=== PATIENT | male | born 1945 | race Caucasian/White ===

== ENCOUNTER → 2017-11-25 | Outpatient (CLI) | payer MEDICARE, BC | END | disposition home or self-care (01) | LOC: GMAM 10:50 | PROVIDERS: ATTEND Family Medicine | DX: Z12.5 Encounter for screening for malignant neoplasm of prostate (principal); E78.5 Hyperlipidemia, unspecified ==

== ENCOUNTER → 2017-11-26 | Outpatient (CLI) | payer MEDICARE, BC | LOC: GMAM 14:47 | PROVIDERS: ATTEND Family Medicine | DX: R41.82 Altered mental status, unspecified (principal) ==

== ENCOUNTER → 2017-11-28 | Outpatient (CLI) | payer MEDICARE, BC ==
--- NOTE | 2017-12-01 16:33 | MRI ---
EXAM DESCRIPTION: Brain w/oContrast CLINICAL HISTORY: 72 years, Male, MEMORY LOSS COMPARISON: August 19, 2014 TECHNIQUE: Multiplanar multi sequence images of the brain were obtained without gadolinium contrast. FINDINGS: Diffusion-weighted images show no diffusion restriction. Midline structures, including the corpus callosum, pituitary and brainstem, are unremarkable. The ventricles are of normal size and configuration, and there is no intraventricular mass. There is generalized age-appropriate volume loss. Physiologic vascular flow voids are noted. The internal auditory canals and cerebellopontine angles are unremarkable. There are no extra-axial fluid collections. There are irregular areas of increased T2/FLAIR signal involving periventricular and subcortical white matter in both cerebral hemispheres, nonspecific but likely related to chronic ischemic microvascular disease. There is no posterior fossa lesion. There is minimal mucoperiosteal thickening in the maxillary sinuses bilaterally. A small right-sided mastoid air cell effusion is noted. There is no calvarial lesion. IMPRESSION: Irregular areas of increased T2/FLAIR signal involving periventricular and subcortical white matter in both cerebral hemispheres, nonspecific but likely related to chronic ischemic microvascular disease. No cortical infarct, mass or other intracranial abnormality to explain patient symptoms. Generalized age-appropriate volume loss. Mild chronic bilateral maxillary sinusitis with a small right-sided mastoid air cell effusion. Electronically signed by: Erik Aleman MD 12/01/2017 4:32 PM [facility]
== END ==
LOC: MRI 11:00
PROVIDERS: ATTEND Family Medicine
DX: R41.82 Altered mental status, unspecified (principal); J32.0 Chronic maxillary sinusitis; Z87.891 Personal history of nicotine dependence

== ENCOUNTER 2018-04-22 05:46 | Day surgery (SDC) | payer MEDICARE, BC ==
[2018-04-22] MEDS: LACTATED RINGERS 1,000 ML ONE (08:10)
[2018-04-22 08:22] VITALS: O2SAT 97
[2018-04-22] MEDS ORDERED: PROPOFOL 200 MG/20 ML VIAL IV ONE (10:00)
--- NOTE | 2018-04-22 10:02 | OP ---
DATE OF PROCEDURE: 04/22/18 PREPROCEDURE DIAGNOSIS: 1. Fecal occult blood test positive. POSTPROCEDURE DIAGNOSIS: 1. Colonic polyps. 2. Large internal hemorrhoids. 3. Hypertrophied anal papilla. PROCEDURE: 1. Colonoscopy. SURGEON: Anthony Ivy MD SEDATION: The patient was sedated via IV propofol by the Anesthesia Department. COMPLICATIONS: No immediate complications. CONSENT: Prior to the procedure, risks, benefits and alternatives to the therapy were discussed with the patient. The risks included bleeding, infection , perforation and . The patient agreed to the procedure and signed a consent. PREPROCEDURE ANESTHESIA ASSESSMENT: An examination revealed no contraindication to sedation. Airway examination demonstrated a Mallampati class type 2, ASA grade assessment type 2. Throughout the procedure, the patient's blood pressure, pulse and oxygen saturation were monitored continuously. PROCEDURE: The patient was placed in the left lateral decubitus position and a rectal examination was performed. The rectal examination was within normal limits. The Olympus colonoscope was passed in the anus, rectum, traversing the colon to the level of the cecum as identified by the appendiceal orifice. The scope was retracted and the mucosa was visualized. The entirety of the exam was performed with direct visualization. Retroflexion was performed in the rectum. Preparation quality was good. The withdrawal time was greater than 6 minutes. The patient tolerated the procedure well. FINDINGS: 1. Three sessile colposcopic were seen in the sigmoid colon, removed with the cold snare. The polyps were completely retrieved. 2. Large non-bleeding internal hemorrhoids were seen on retroflexion. 3. Hypertrophied anal papilla was seen in the anorectal canal. RECOMMENDATION: 1. Return the patient home. 2. Resume previous diet. 3. Repeat colonoscopy in 3 to 5 years depending on results of pathology. 4. Followup pathology results. 5. May continue to obtain fecal occult blood testing or DNA based (Cologuard testing) per primary care provider interval times on yearly or every 3 years starting 3 years from present examination. 6. All findings were discussed with the patient and family members. #[id number] [facility]OSPITALNguyen
[2018-04-22 11:01] VITALS: BP 141/77; TEMP 97.3
== END 2018-04-22 10:45 | disposition home or self-care (01) ==
LOC: AMB 05:46
PROVIDERS: ATTEND Internal Medicine Gastroenterology
DX: R19.5 Other fecal abnormalities (principal); D12.5 Benign neoplasm of sigmoid colon; R63.4 Abnormal weight loss; Z87.891 Personal history of nicotine dependence; Z79.82 Long term (current) use of aspirin; Z79.899 Other long term (current) drug therapy
CPT/HCPCS: 00811; 45385; 88305; J3490; J7120

== ENCOUNTER → 2018-12-03 | Outpatient (CLI) | payer MEDICARE, BC ==
--- NOTE | 2018-12-03 16:24 | CT ---
EXAM DESCRIPTION: CTA Pelvis: Computed Tomography. 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 CTA of the abdomen and pelvis on this visit. TECHNIQUE: Spiral-axial scans 2.5 x 2.5 mm intervals through the abdomen and pelvis without oral or IV contrast. Coronal and sagittal 2.0 mm reconstructions. Total Exam DLP: 603.59 mGy-cm. This exam was performed according to our departmental CT dose-optimization program which includes automated exposure control, adjustment of the mA and/or kV according to patient size and/or use of iterative reconstruction technique; to reduce radiation dose to as low as reasonably achievable (ALARA). FINDINGS: Lung bases and pleura: 4 mm nodule partially visualized which appears to be associated with the right horizontal fissure. 3 mm nodule which appears to be associated with the lateral inferior right major fissure. Minimal scarring/atelectasis bilateral bases. No pleural effusion or pneumothorax. Liver, stomach, spleen, and adrenal glands: Stomach is unremarkable. Multiple fluid density masses in all segments of the liver. Some of low-density lesions are too small to determine density. One cyst projects from the anterior inferior right hepatic lobe. Other solid organs are negative. Pancreas, Gallbladder, and Ducts: Gallbladder is visualized. Distal fold with Fundus directed cranially. Duct is not distended. Pancreas is unremarkable. Normal surrounding fatty tissue. Kidneys and Ureters: Unremarkable. Mesentery: No fatty stranding or fascial thickening. No free air or free fluid. Aorta: Please see CTA abdomen and report. Small Bowel: Fluid and air-fluid levels with no significant distention. Terminal Ileum/Cecum: Minimal mucosal edema in the terminal ileum with minimal fatty stranding around the bowel outer wall. Ileocecal valve is unremarkable. Normal caliber of the appendix with normal surrounding fat. Colon: Rectosigmoid colon distended by fecal matter. Numerous diverticula in the sigmoid and descending colon. Number. Diffuse fecal matter. No significant air-fluid levels. No other complications. No mucosal edema. Pelvic Organs: Bladder is slightly contracted. Prostate gland abutting the base of the bladder and the seminal vesicles. Diameter is 4.7 x 3.3 cm. No fluid in the anterior peritoneal reflection. Possible epiploic appendage from the rectum versus fatty lipoma anterior to the right of the rectum on axial series 2, image 152. Numerous calcifications in the pelvis. Spine and Bony Pelvis: Decreased bone density in the lumbar spine. Narrowing of the L1-2 and L2-3 disc spaces with bulging discs. Grade 1 anterolisthesis L4-5 and bilateral significant foraminal narrowing. No lytic or blastic lesions. Diffuse [id number] arthrosis bilateral hip joints. Abdominal Wall/Back Soft Tissues: Minimal diastases at the umbilicus but no bowel hernia. Bilateral fatty inguinal hernias more on the right than the left not containing bowel. Posterior paraspinal muscle atrophy more on the left. IMPRESSION: 1. Small nodules in the lung bases apparently associated with fissures. Consider CT follow-up evaluation of the chest to evaluate for other nodules. 2. Multiple low density nodules in all segments of the liver. The larger nodules that are measurable are cysts. No calcifications. 3. Mucosal edema in the distal terminal ileum with minimal fatty stranding. Nonspecific localized inflammatory process. No small bowel obstruction. Cecum is unremarkable. 4. prostate gland slightly enlarged. Fatty lipoma or epiploic appendage in the right pelvis with no inflammatory changes. No free fluid. Small hernias not containing bowel. Electronically signed by: Rommel Birmingham MD 12/03/2018 4:22 PM [facility]
--- NOTE | 2018-12-03 18:00 | CT ---
EXAM DESCRIPTION: CTA Abdomen: Computed Tomography. CLINICAL HISTORY: Aneurysm of iliac artery COMPARISON: CT scan abdomen and pelvis without contrast on this visit. CT scan of the abdomen and pelvis without contrast 10/04/2016. TECHNIQUE: CT angiography of the abdominal aorta is performed during rapid bolus administration of IV contrast media. Three-dimensional volume-rendering imaging is reviewed along with 2.5 x 2.5 mm source images, and sagittal and coronal coronal and sagittal reformats. Total Exam DLP: 620.05 mGy-cm. This exam was performed according to our departmental CT dose-optimization program which includes automated exposure control, adjustment of the mA and/or kV according to patient size and/or use of iterative reconstruction technique; to reduce radiation dose to as low as reasonably achievable (ALARA). FINDINGS: Upper abdominal aorta: Moderate atherosclerotic calcification. Calcification of the origins of the celiac axis and the SMA. Approximately 35% stenosis of the origin of the SMA with poststenotic dilation. There is also atherosclerotic calcification of the proximal SMA before the first branch vessel. Mid-abdominal aorta: Minimal intimal wall thickening and moderate atherosclerotic calcification. Left main renal artery and accessory left renal artery origin 3.8 cm distal. Right main renal artery and accessory right renal artery with origins adjacent. Approximately 50% diameter stenosis of the origin of the left renal artery with poststenotic dilation. Approximately 30% diameter stenosis of the origin of the right main renal artery. Moderate to advanced atherosclerotic calcification. Distal abdominal aorta: significant circumferential atherosclerotic calcification with minimal intimal wall thickening predominantly just inferior to the main renal arteries. Maximum diameter 2.2 x 1.9 cm at the L2-3 disc space level. Laparoscopic calcification of the origin of the ALEJANDRA. Partial formation of a second lumen on the left aspect of the aorta just inferior to the ALEJANDRA origin. Only a short segment. Common iliacs: Diameter of the proximal right common iliac artery just prior to the bifurcation is 15 x 12 mm. No surrounding soft tissue mass or extravasated contrast. Diameter of the proximal left common iliac artery just distal to the bifurcation is 11 x 10. Moderate atherosclerotic calcification in these vessels. Internal iliacs: Minimal stenosis of the bilateral origins of the internal iliac arteries. Moderate atherosclerotic calcification. Bilateral external iliac arteries: No significant narrowing or calcification. Minimal tortuosity. Other: Coronary artery stents and calcifications. IMPRESSION: 1. 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 No complications. 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 2. Approximately 50% stenosis of the origin of the left main renal artery with poststenotic dilation. Both kidneys have accessory arteries to the kidneys as described. 3. Approximately 35% stenosis of the origin of the SMA with poststenotic dilation. 4. Ectasia of the abdominal aorta but no aneurysm. Electronically signed by: Rommel Birmingham MD 12/03/2018 5:57 PM GERIATRIC NURSE ASSISTANT
== END ==
LOC: CT 09:30
PROVIDERS: ATTEND Nuclear Medicine Nuclear Cardiology
DX: I72.3 Aneurysm of iliac artery (principal); I70.1 Atherosclerosis of renal artery; I77.811 Abdominal aortic ectasia; I35.0 Nonrheumatic aortic (valve) stenosis; I70.218 Atherosclerosis of native arteries of extremities with intermittent claudication, other extremity; K76.9 Liver disease, unspecified; R91.8 Other nonspecific abnormal finding of lung field; R25.2 Cramp and spasm

== ENCOUNTER 2019-01-30 16:37 | Emergency (ER) | payer MEDICARE, BC ==
--- NOTE | 2019-01-30 16:49 | ED.PDOC ---
History of Present Illness - General Chief Complaint: Neuro Symptoms/Deficits Stated Complaint: Stroke-like symptoms Time Seen by Provider: 01/30/19 16:39 Source: family - children Exam Limitations: no limitations - History of Present Illness Initial Comments: Faraz Gabriel 73 y/o male who had been apparently well until 10 am today when he had onset of mild to moderate headache and son called up his cell phone was asking for some stuff but unable to find it the patient showed up at his sons workplace and was noted to some what talking senseless but drove home w/c according to son he lives few blocks away.Then son went home to see him at about 3pm and was noted to be still talking w/o sense and easily agitated.He was then brought to ER.Patient was able to walk from er parking lot and to the er bed.Son stated dad is active no hospitalizations for chronic medical problem. Timing/Duration: 4-6 hours, constant Severity: moderate Episode Description: see hpi Improving Factors: nothing Worsening Factors: nothing Associated Symptoms: confusion Allergies/Adverse Reactions: Allergies NO KNOWN ALLERGY Allergy (Verified 01/30/19 16:45) Home Medications: Ambulatory Orders Aspirin [Baby Aspirin] 81 mg PO ONCE 08/15/14 Atorvastatin Calcium [Lipitor] 20 mg PO ONCE 08/15/14 Donepezil Hydrochloride [Donepezil HCl] 10 mg PO ONCE 04/20/18 Dutasteride [Avodart] 0.5 mg PO ONCE 04/20/18 Multiple Vitamins W/ Minerals [One Daily Mens 50+ Multiv] 1 tab PO ONCE 04/20/18 Review of Systems - Review of Systems Neurological: States: see HPI, other - AMS Unable to Obtain Due To: condition Past Medical History (General) - Patient Medical History Hx Seizures: No Hx Stroke: No Hx Dementia: No Hx Asthma: No Hx of COPD: No Hx Cardiac Disorders: Yes - dyslipidemia Hx Congestive Heart Failure: No Hx Pacemaker: No Hx Hypertension: No Hx Thyroid Disease: No Hx Diabetes: No Hx Gastroesophageal Reflux: No Hx Renal Disease: No Hx Cancer: No Hx of HIV: No Hx Hepatitis C: No Hx MRSA: No Surgical History: no surgical history - Vaccination History Hx Tetanus, Diphtheria Vaccination: No Hx Influenza Vaccination: No Hx Pneumococcal Vaccination: No - Social History Hx Tobacco Use: No Hx Chewing Tobacco Use: No Hx Alcohol Use: No Hx Substance Use: No Hx Substance Use Treatment: No Hx Depression: No Hx Physical Abuse: No Hx Emotional Abuse: No Hx Suspected Abuse: No - Female History Patient : No Family Medical History - Family History Mother Family History: No Known Living Status: Grandparents Living Status: Hx Family Diabetes: Yes Physical Exam - Physical Exam General Appearance: Alert, Comfortable, No apparent distress Eye Exam: bilateral normal ENT Exam: normal ENT inspection, hearing grossly normal, TMs normal, pharynx normal Neck: non-tender, full range of motion, supple, normal inspection, trachea midline Respiratory: chest non-tender, lungs clear, normal breath sounds, no respiratory distress Cardiovascular/Chest: normal peripheral pulses, regular rate, rhythm, systolic murmur - 3/6 left base Gastrointestinal/Abdominal: normal bowel sounds, non tender, soft Back Exam: normal inspection, no CVA tenderness, no vertebral tenderness Extremities Exam: non-tender, normal range of motion, no evidence of injury, no edema Mental Status: disoriented x 3, other mail sorter Exam: normal hearing, normal speech, PERRL, other - aphasia;no dysarthria speech fluent Coordination/Gait: normal gait Motor/Sensory: no motor deficit, no sensory deficit, no pronator drift, other - need to demonstrate how to raise up his hand and legs unable to do it w/o being shown Skin Exam: normal color, warm/dry Progress - Progress Progress: 01/30/19 17:53 Vital Signs - 8 hr 01/30/19 01/30/19 16:37 17:30 Temperature 97.7 F Pulse Rate [ 74 73 Apical] Respiratory 22 20 Rate Blood Pressure 188/83 155/70 [Left Arm] O2 Sat by Pulse 97 99 Oximetry - Results/Orders Results/Orders: 01/30/19 16:49 IV Care:Saline Lock per Protoc QSHIFT URINE DRUG SCREEN, 7 ASSAY Stat 01/30/19 16:51 EKG Assessment ONCE 01/30/19 16:52 EKG Assessment ONCE 01/30/19 17:00 EKG STAT EKG STAT 01/30/19 17:48 URINALYSIS Stat 01/30/19 17:51 Catheter:Clifford QSHIFT Laboratory Results - last 24 hr 01/30/19 01/30/19 01/30/19 16:38 16:40 16:40 WBC 7.8 RBC 4.01 L Hgb 12.8 L Hct 38.6 L MCV 96.4 H MCH 32.0 H MCHC 33.3 RDW 13.6 Plt Count 246 MPV 7.2 L Absolute Neuts (auto) 5.80 Absolute Lymphs (auto) 1.10 Absolute Monos (auto) 0.70 Absolute Eos (auto) 0.20 Absolute Basos (auto) 0.10 Neutrophils % 74.4 Lymphocytes % 13.7 L Monocytes % 8.5 Eosinophils % 2.1 Basophils % 1.3 PT 9.9 INR 0.99 PTT (SP) 23.4 Sodium 139 Potassium 3.5 L Chloride 105 Carbon Dioxide 24 Anion Gap 13.5 BUN 18 Creatinine 1.02 BUN/Creatinine Ratio 17.6 POC Glucose 105 Random Glucose 101 Serum Osmolality 279.6 Lactic Acid Calcium 8.8 Magnesium 2.2 Total Bilirubin 0.7 Direct Bilirubin 0.2 Indirect Bilirubin 0.5 AST 29 ALT 20 Alkaline Phosphatase 61 Creatine Kinase 209 H* CK-MB (CK-2) 7.2 H* CK-MB (CK-2) % 3.44 Troponin I 0.07 H* Serum Total Protein 6.7 Albumin 3.8 Ethyl Alcohol < 5.40 01/30/19 16:40 WBC RBC Hgb Hct MCV MCH MCHC RDW Plt Count MPV Absolute Neuts (auto) Absolute Lymphs (auto) Absolute Monos (auto) Absolute Eos (auto) Absolute Basos (auto) Neutrophils % Lymphocytes % Monocytes % Eosinophils % Basophils % PT INR PTT (SP) Sodium Potassium Chloride Carbon Dioxide Anion Gap BUN Creatinine BUN/Creatinine Ratio POC Glucose Random Glucose Serum Osmolality Lactic Acid 1.4 Calcium Magnesium Total Bilirubin Direct Bilirubin Indirect Bilirubin AST ALT Alkaline Phosphatase Creatine Kinase CK-MB (CK-2) CK-MB (CK-2) % Troponin I Serum Total Protein Albumin Ethyl Alcohol Stroke Information - Onset of Symptoms Symptoms of Stroke: Aphasia Stroke Onset of Symptoms Date: 01/30/19 Stroke Onset of Symptoms Time: 10:00 - Contraindications Antithrombotic Contraindication: Treatment not indicated - hemorrhagic stoke t-PA Contraindication: Drug Tx Not Indicated Departure - Departure Clinical Impression: 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 Copy, Patient Portal Self Enrollment Referrals: Haile Mason MD [Primary Care Provider] - 1-2 Weeks Home Medications: Ambulatory Orders Aspirin [Baby Aspirin] 81 mg PO ONCE 08/15/14 Atorvastatin Calcium [Lipitor] 20 mg PO ONCE 08/15/14 Donepezil Hydrochloride [Donepezil HCl] 10 mg PO ONCE 04/20/18 Dutasteride [Avodart] 0.5 mg PO ONCE 04/20/18 Multiple Vitamins W/ Minerals [One Daily Mens 50+ Multiv] 1 tab PO ONCE 04/20/18 Transfer to Outside Facility - Transfer Information Accepting Facility: [facility] Reason for Transfer: required specialist not available - neuro surgeon
[2019-01-30 16:52] VITALS: TEMP 97.7
--- NOTE | 2019-01-30 17:16 | CT ---
EXAM: Head CLINICAL INDICATION: 73-year-old male with altered mental status. COMPARISON: 08/15/2014. TECHNIQUE: CT brain without contrast. This exam was performed according to our departmental dose optimization program which includes use of automated exposure control, adjustment of the mA and/or kV according to patient size and/or use of iterative reconstruction technique. FINDINGS: Focal area of round increased density is identified present at the level of the LEFT frontal lobe compatible with hemorrhage measuring 18 x 27 mm, (series 5, image 36). Associated peripheral linear high density compatible with extension of parenchymal to sulcal subarachnoid hemorrhage. Additional focal area of hemorrhage present within the medial RIGHT parietal lobe measures 10 x 20 mm, (series 5, image 38). Thin linear focus of subcentimeter high density present at the joshi-white matter junction of the RIGHT posterior parietal lobe (series 5, image 45). These findings are compatible with hemorrhage, however multiplicity raises the concern for hemorrhagic metastasis. The possibility of amyloid angiopathy, hypertensive hemorrhage may be considered in the differential. Multifocal regions of patchy hypoattenuation are present in a subcortical and periventricular deep white matter distribution, nonspecific; however, may represent small vessel ischemic disease, age indeterminate. Possibility of underlying lesions is not excluded. The ventricles, and sulci are prominent compatible with underlying volume loss. The joshi-white matter differentiation is preserved. There is no mass effect, midline shift. The osseous structures are unremarkable. The paranasal sinuses and mastoid air cells are clear. IMPRESSION: 1. Multifocal areas of hemorrhage as detailed above raising concern for hemorrhagic metastasis in the correct clinical setting. Further evaluation with MRI is recommended following interval resolution of hemorrhage. 2. Nonspecific white matter change may small vessel ischemic disease, age indeterminate, similar in appearance to the previous examination. CT is insensitive for early evaluation of acute stroke. If there is clinical concern for acute ischemia, an MRI may be considered. Electronically signed by: Sangeetha Ohara MD 01/30/2019 5:13 PM CDT
[2019-01-30 18:13] VITALS: BP 166/72; O2SAT 98
== END 2019-01-30 18:37 | disposition short-term general hospital (02) ==
LOC: ER 16:37
DX: I60.9 Nontraumatic subarachnoid hemorrhage, unspecified (principal); R79.89 Other specified abnormal findings of blood chemistry; R47.01 Aphasia; E78.5 Hyperlipidemia, unspecified; Z79.82 Long term (current) use of aspirin; Z79.899 Other long term (current) drug therapy

== ENCOUNTER → 2019-07-01 | Outpatient (CLI) | payer MEDICARE, BC ==
--- NOTE | 2019-07-01 13:53 | CT ---
EXAM DESCRIPTION: CTA Pelvis CLINICAL HISTORY: 73 years, Male, ILIAC ARTERY ANEURYSM COMPARISON: CTA pelvis 12/03/2018 TECHNIQUE: Rapid bolus administration of IV contrast was performed with thin-section axial scanning of the pelvis performed in a dynamic fashion. Reconstructed multiplanar and three dimensional MIP images created on a separate dedicated workstation are reviewed along with the source axial images and stored in the patient's medical record. This exam was performed according to our departmental dose-optimization program, which includes automated exposure control, adjustment of the mA and/or kV according to patient size and/or use of iterative reconstruction technique. FINDINGS: VASCULAR: Lower abdominal aorta: Moderate predominantly calcified atherosclerotic plaquing of the abdominal aorta and its branches. No focal aneurysm or dissection. Lower abdominal aorta measures up to 2 cm. Right Iliac: Moderate mixed atherosclerotic plaquing of the common and internal iliac arteries. Mild right common iliac artery aneurysm measures 15 x 13 cm, previously 15 x 12 cm, unchanged. The external iliac artery is patent. Left Iliac: Moderate mixed atherosclerotic plaquing of the common and internal iliac arteries without aneurysm or flow-limiting stenosis. Left common iliac artery measures up to 11 mm, unchanged. The external iliac artery is patent. Common femoral arteries: Right and left common femoral arteries are widely patent. NONVASCULAR: Mild mucosal thickening involving the ileum extending to the terminal ileum, similar compared to prior examination. Moderate sigmoid colon diverticulosis without diverticulitis. Unchanged fatty lobulation anterior to the rectosigmoid junction. Partially decompressed bladder is unremarkable. No acute osseous abnormality. IMPRESSION: 1. Mild right common iliac artery ectasia measuring 1.5 cm, unchanged compared to prior examination dated 12/03/2018. 2. Partially visualized moderate abdominal aortic atherosclerotic disease without focal aneurysm or dissection. 3. Chronic distal and terminal ileum nonspecific mucosal thickening without significant surrounding fatty stranding appears similar compared to prior examination. 4. Diverticulosis without diverticulitis. Electronically signed by: Henry Bryant DO 07/01/2019 1:51 PM CDT
== END ==
LOC: CT 09:00
PROVIDERS: ATTEND Nuclear Medicine Nuclear Cardiology
DX: I72.3 Aneurysm of iliac artery (principal); I70.0 Atherosclerosis of aorta; K57.30 Diverticulosis of large intestine without perforation or abscess without bleeding; K63.89 Other specified diseases of intestine; Z79.899 Other long term (current) drug therapy

== ENCOUNTER → 2019-09-02 | Outpatient (CLI) | payer MEDICARE, BC | LOC: GMAM 14:30 | PROVIDERS: ATTEND Family Medicine | DX: Z12.5 Encounter for screening for malignant neoplasm of prostate (principal); E78.2 Mixed hyperlipidemia ==

== ENCOUNTER → 2019-10-07 | Outpatient (CLI) | payer MEDICARE, BC ==
--- NOTE | 2019-10-08 09:36 | MRI ---
EXAM DESCRIPTION: Brain w/o Contrast: MRI. CLINICAL HISTORY: CEREBRAL INFARCTION COMPARISON: MRI scan of the brain without contrast 28 November 2017. TECHNIQUE: Multiplanar, high-field MRI unit, multiple diffusion sequences, multiple conventional sequences without contrast. FINDINGS: Since the prior study, additional lesions with ferromagnetic blooming are seen on the axial T2*gradient sequence in the bilateral anterior frontal lobes at the level of the ventricles, in the inferior right parasagittal subcortical occipital lobe, and in the cortical and subcortical posterior left parietal lobe at the level of the ventricles. Also questionable lesions in the bilateral frontal lobes at the vertex versus artifact from meninges and inner table of the skull. These type of lesions are related to hemorrhagic infarcts and likely an embolic process. The largest lesion is in the posterior left parietal lobe cortical joshi and subcortical white matter. These lesions are also hypointense or no signal on the FLAIR sequence, diffusion-weighted B 1000 sequences, and T1 imaging. Mixed hypointense and hyperintense on T2-weighted and ADC map sequences. Minimally hyperintense T1 signal in the large left occipital lesion suggests some residual subacute hemorrhage suggesting this is a more recent event and is consistent with minimal diffusion restriction seen on the B 1000 diffusion image. Again noted is bilateral hyperintense confluent and multifocal FLAIR and T2-weighted signal in the periventricular white matter and joshi/sub-cortical white matter predominantly involving the anterior and posterior margins of the ventricles, frontal and occipital horns, the periventricular murphy radiata and the centrum semiovale bilaterally but more prominent left than right. More hyperintense T2 and FLAIR white matter signal around the large infarction in the posterior left parietal lobe.. The degree of white matter involvement has progressed since the prior study. No hemorrhage, no cerebral edema, no mass-effect or diffusion restriction in these older lesions. No significant lesions in the bilateral basal ganglia. No new lesion signal in the brainstem and cerebellar hemispheres. No hemorrhage, no parenchymal edema, no mass-effect. No diffusion restriction. Concordance of the diffusion and non-diffusion sequences with no diffusion restriction. Cortical sulci, ventricles, and other CSF spaces, and the subdural spaces are slightly prominent for the patient's age especially the ventricles, and the spaces abutting the infarctions, particularly the posterior left parietal lobe. No effacement or displacement. No midline shift. No extra-axial hemorrhage. Normal flow signal void in the major vessels of the [place], and the venous sinuses. IACs are symmetric bilaterally. Fluid signal in the right mastoid air cells, normal signal in the left. Bilateral no mass effect in the cerebellopontine angles. Pituitary gland occupies most of the sella. Base of the cerebellar tonsils is at the level of the foramen magnum. Minimal mucoperiosteal chronic thickening in the paranasal sinuses; more in the maxillary antra. The bony calvarium is intact. IMPRESSION: 1. Multifocal hemorrhagic type infarctions bilaterally since the prior study involving the bilateral frontal lobes, bilateral occipital lobes, and the largest lesion and more recent infarction in the posterior left parietal lobe cortical joshi matter and subcortical white matter. This lesion is also the largest. 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 2. Progressive periventricular white matter abnormality most likely related to aging and cerebral microvascular disease, with more involvement of the left cerebral hemisphere compared to the right. Brainstem and posterior fossa are unremarkable. 3. No acute or subacute hemorrhage or infarction. No mass effect or midline shift. 4. Chronic paranasal sinusitis and inflammatory changes in the right mastoid air cells. Electronically signed by: Rommel Birmingham MD 10/08/2019 9:34 AM MEDICAL REGISTRAR
== END ==
LOC: MRI 09:00
PROVIDERS: ATTEND Family Medicine
DX: I63.50 Cerebral infarction due to unspecified occlusion or stenosis of unspecified cerebral artery (principal); J32.9 Chronic sinusitis, unspecified; R90.82 White matter disease, unspecified

== ENCOUNTER 2020-02-13 00:06 | Observation (INO) | payer MEDICARE, BC ==
--- NOTE | 2020-02-13 00:38 | ED.PDOC ---
History of Present Illness - General Chief Complaint: Cardiovascular Problem Stated Complaint: swelling to BLE since 3 mo ago, fell 6 mo ago Time Seen by Provider: 02/13/20 00:22 Source: patient Exam Limitations: other - Dementia Additional Information: 74yo M dropped off by family for evaluation after fall. The family apparently also mentioned swelling in the patient's feet. The patient presently has no complaints. He denies pain and is unable to provide any detail about his presence here. He states he feels fine. Denies chest pain, palpitations, headache, arm pain, leg pain, neck or back pain. There is hx of dementia. No other reported hx. - History of Present Illness Timing/Duration: 1-3 hours Severity: mild Allergies/Adverse Reactions: Allergies NO KNOWN ALLERGY Allergy (Verified 02/13/20 00:35) Home Medications: Ambulatory Orders Aspirin [Baby Aspirin] 81 mg PO ONCE 08/15/14 Atorvastatin Calcium [Lipitor] 20 mg PO ONCE 08/15/14 Donepezil Hydrochloride [Donepezil HCl] 10 mg PO ONCE 04/20/18 Dutasteride [Avodart] 0.5 mg PO ONCE 04/20/18 Multiple Vitamins W/ Minerals [One Daily Mens 50+ Multiv] 1 tab PO ONCE 04/20/18 Review of Systems - Review of Systems Constitutional: Denies: chills, fever, weakness EENTM: Denies: blurred vision, nose congestion, throat pain Cardiology: States: edema. Denies: chest pain, palpitations Gastrointestinal/Abdominal: Denies: abdominal pain, constipation, diarrhea, nausea, vomiting Genitourinary: Denies: dysuria, frequency, hematuria Musculoskeletal: Denies: back pain, muscle pain, neck pain Skin: Denies: change in color, rash Neurological: Denies: headache, numbness, weakness Endocrine: States: no symptoms reported Hematologic/Lymphatic: States: no symptoms reported Unable to Obtain Due To: dementia - Limited due to Past Medical History (General) - Patient Medical History Hx Seizures: No Hx Stroke: Yes Hx Dementia: No Hx Asthma: No Hx of COPD: No Hx Cardiac Disorders: Yes - dyslipidemia Hx Congestive Heart Failure: No Hx Pacemaker: No Hx Hypertension: No Hx Thyroid Disease: No Hx Diabetes: No Hx Gastroesophageal Reflux: No Hx Renal Disease: No Hx Cancer: No Hx of HIV: No Hx Hepatitis C: No Hx MRSA: No Surgical History: noncontributory - Vaccination History Hx Tetanus, Diphtheria Vaccination: No Hx Influenza Vaccination: No Hx Pneumococcal Vaccination: No - Social History Hx Tobacco Use: No Hx Chewing Tobacco Use: No Hx Alcohol Use: No Hx Substance Use: No Hx Substance Use Treatment: No Hx Depression: No Hx Physical Abuse: No Hx Emotional Abuse: No Hx Suspected Abuse: No - Female History Patient : No Family Medical History - Family History Mother Family History: No Known Living Status: Grandparents Living Status: Hx Family Diabetes: Yes Physical Exam - Physical Exam General Appearance: Alert, Comfortable Eye Exam: bilateral normal Ears, Nose, Throat: hearing grossly normal, normal ENT inspection Neck: normal inspection, other - Paraspinus muscular tenderness, no midline tenderness Respiratory: chest non-tender, lungs clear, normal breath sounds, no respiratory distress Cardiovascular/Chest: regular rate, rhythm, other - Bilateral trace pedal edema Gastrointestinal/Abdominal: normal bowel sounds, non tender, soft, no organomegaly Back Exam: normal inspection, no vertebral tenderness Extremity: normal range of motion, non-tender, pedal edema Neurologic: no motor/sensory deficits, alert, normal mood/affect Skin Exam: normal color, other - Small abrasion to R forehead Progress - Progress Progress: 02/13/20 00:42 DDX: Dementia, fall, lyte disorder, infection, IC injury, sprain, strain, arrhythmia, ACS, CHF, CVA, ICH, medication side effect, non-compliance. Demian English MD. #[id number] The patient and physician were wearing a surgical mask during hx and brief gloved exam. 02/13/20 01:06 Son arrived. States pt is a bit more confused than his baseline and had to falls today. Pt has hx of alzheimer's for which he takes medication, but has not taken it the past few days. Son further's pt has hx of a stroke 1 year ago which contributed to his decline. No noted new focal weakness, numbness, speech change today. No recent illness or sick contacts. 02/13/20 01:54 Patient states he lives in his own house and son stays with him. Pt updated on findings and plan to admit. 02/13/20 01:55 Discussed with Jeff Christiansen. Will bring into the hospital for further care. - Results/Orders Results/Orders: 02/13/20 00:33 URINALYSIS Stat 02/13/20 02:00 Potassium Chloride Inj 40 Meq 40 meq Sodium Chloride 0.9% 250Ml [NS 250ml] 250 ml IVPB ONCE Laboratory Results - last 24 hr 02/13/20 02/13/20 02/13/20 00:45 00:45 00:45 WBC 6.0 RBC 3.43 L Hgb 10.8 L Hct 32.5 L MCV 94.7 H MCH 31.4 H MCHC 33.1 RDW 14.0 Plt Count 219 MPV 7.4 Absolute Neuts (auto) 4.20 Absolute Lymphs (auto) 1.20 Absolute Monos (auto) 0.50 Absolute Eos (auto) 0.10 Absolute Basos (auto) 0.00 Neutrophils % 69.9 Lymphocytes % 19.5 L Monocytes % 8.1 Eosinophils % 2.2 Basophils % 0.3 Sodium 138 Potassium 2.6 L Chloride 104 Carbon Dioxide 29 Anion Gap 7.6 L BUN 24 H Creatinine 0.92 BUN/Creatinine Ratio 26.1 H Random Glucose 99 Serum Osmolality 279.8 Calcium 8.5 Magnesium 2.0 Total Bilirubin 0.7 AST 34 ALT 17 Alkaline Phosphatase 61 Creatine Kinase 685 H* CK-MB (CK-2) 11.9 H* CK-MB (CK-2) % 1.74 Troponin I 0.03 B-Natriuretic Peptide 150.0 H Serum Total Protein 5.9 L Albumin 3.2 Globulin 2.7 Albumin/Globulin Ratio 1.2 Last Vital Signs Temp 98.1 F 02/13/20 00:14 Pulse 58 L 02/13/20 00:14 Resp 16 02/13/20 00:14 BP 135/69 02/13/20 00:14 Pulse Ox 98 02/13/20 00:14 - EKG/XRAY/CT EKG: Sinus, no ST T wave changes Comments: 60, occ premature atrial complex, incomplete RBBB XRAY: chest - No acute findings, see formal read. CT: Head and Cervical: No acute traumatic findings. See read. Departure - Departure Clinical Impression: Hypokalemia, Falls frequently, Elevated CK, Elevated brain natriuretic peptide (BNP) level, Bilateral lower extremity edema Dementia Qualifiers: Dementia type: Alzheimer's disease Alzheimer's disease onset: unspecified onset Dementia behavioral disturbance: without behavioral disturbance Qualified Code(s): G30.9 - Alzheimer's disease, unspecified Time of Disposition: : Disposition: Admit Patient Condition: Fair Departure Forms: ED Discharge - Pt. Copy, Patient Portal Self Enrollment Instructions: DI for Chest Pain Referrals: Haile Mason MD [Primary Care Provider] - 1-2 Weeks Home Medications: Ambulatory Orders Aspirin [Baby Aspirin] 81 mg PO ONCE 08/15/14 Atorvastatin Calcium [Lipitor] 20 mg PO ONCE 08/15/14 Donepezil Hydrochloride [Donepezil HCl] 10 mg PO ONCE 04/20/18 Dutasteride [Avodart] 0.5 mg PO ONCE 04/20/18 Multiple Vitamins W/ Minerals [One Daily Mens 50+ Multiv] 1 tab PO ONCE 04/20/18
--- NOTE | 2020-02-13 01:26 | RAD ---
EXAM DESCRIPTION: Chest,1 View CLINICAL HISTORY: 74 years Male, Fall COMPARISON: Chest x-ray August 15, 2014 FINDINGS: No consolidation. No pneumothorax. No significant pleural effusion. Heart appears normal in size. Aortic atherosclerosis is present. Osseous structures are unremarkable. IMPRESSION: No acute findings. Electronically signed by: Markos Otero MD 02/13/2020 1:25 AM CDT
--- NOTE | 2020-02-13 01:35 | CT ---
PROCEDURE: CT Head (accession [id number]) CLINICAL HISTORY: fall TECHNIQUE: Contiguous axial CT images obtained through the brain without IV contrast. Coronal and sagittal reformatted images were provided. This exam was performed according to our departmental dose-optimization program, which includes automated exposure control, adjustment of the mA and/or kV according to patient size and/or use of iterative reconstruction technique. COMPARISON: 01/30/2019 FINDINGS: Brain: Mild cerebral atrophy and bilateral periventricular and subcortical white matter low-attenuation most compatible with chronic microvascular angiopathy without significant interval change. Interval development of left parietal encephalomalacia at site of prior hemorrhage. No focal mass effect. Abarca-white matter differentiation is within normal limits. No hemorrhage. Ventricles: No ventriculomegaly or midline shift. Extra-axial spaces: No extra-axial collection or hemorrhage. Paranasal sinuses and mastoid air cells: Mild to moderate right and minimal left maxillary sinus mucosal thickening. Partial opacification of the right mastoid air cells. Vessels: There is atherosclerotic disease of the internal carotid arteries bilaterally. Bones: Unremarkable Soft tissues: Smoothly marginated concavity at the left medial orbital wall compatible with remote trauma. IMPRESSION: 1. No acute intracranial or extra-axial abnormality. 2. Other findings as above. PROCEDURE: CT Cervical Spine (accession [id number] CLINICAL HISTORY: fall TECHNIQUE: Contiguous axial CT images obtained through the cervical spine without IV contrast. Coronal and sagittal reformatted images also provided. This exam was performed according to our departmental dose-optimization program, which includes automated exposure control, adjustment of the mA and/or kV according to patient size and/or use of iterative reconstruction technique. COMPARISON: None available for comparison FINDINGS: Vertebra: Minimal grade 1 anterolisthesis of C4 on C5, C5 on C6 and T1 on T2. No acute fracture or subluxation. Disc spaces: Mild to moderate multilevel degenerative changes. No canal stenosis. Prevertebral soft tissues: Unremarkable Lung apices: Clear IMPRESSION: No acute injury. Electronically signed by: Caitlyn Washburn MD 02/13/2020 1:34 AM CDT
--- NOTE | 2020-02-13 01:35 | CT ---
PROCEDURE: CT Head (accession [id number]) CLINICAL HISTORY: fall TECHNIQUE: Contiguous axial CT images obtained through the brain without IV contrast. Coronal and sagittal reformatted images were provided. This exam was performed according to our departmental dose-optimization program, which includes automated exposure control, adjustment of the mA and/or kV according to patient size and/or use of iterative reconstruction technique. COMPARISON: 01/30/2019 FINDINGS: Brain: Mild cerebral atrophy and bilateral periventricular and subcortical white matter low-attenuation most compatible with chronic microvascular angiopathy without significant interval change. Interval development of left parietal encephalomalacia at site of prior hemorrhage. No focal mass effect. Abarca-white matter differentiation is within normal limits. No hemorrhage. Ventricles: No ventriculomegaly or midline shift. Extra-axial spaces: No extra-axial collection or hemorrhage. Paranasal sinuses and mastoid air cells: Mild to moderate right and minimal left maxillary sinus mucosal thickening. Partial opacification of the right mastoid air cells. Vessels: There is atherosclerotic disease of the internal carotid arteries bilaterally. Bones: Unremarkable Soft tissues: Smoothly marginated concavity at the left medial orbital wall compatible with remote trauma. IMPRESSION: 1. No acute intracranial or extra-axial abnormality. 2. Other findings as above. PROCEDURE: CT Cervical Spine (accession [id number] CLINICAL HISTORY: fall TECHNIQUE: Contiguous axial CT images obtained through the cervical spine without IV contrast. Coronal and sagittal reformatted images also provided. This exam was performed according to our departmental dose-optimization program, which includes automated exposure control, adjustment of the mA and/or kV according to patient size and/or use of iterative reconstruction technique. COMPARISON: None available for comparison FINDINGS: Vertebra: Minimal grade 1 anterolisthesis of C4 on C5, C5 on C6 and T1 on T2. No acute fracture or subluxation. Disc spaces: Mild to moderate multilevel degenerative changes. No canal stenosis. Prevertebral soft tissues: Unremarkable Lung apices: Clear IMPRESSION: No acute injury. Electronically signed by: Caitlyn Washburn MD 02/13/2020 1:34 AM CDT
[2020-02-13] MEDS ORDERED: SODIUM CHLORIDE 0.9% 250ML 0 ML ONE (01:52)
[2020-02-13] MEDS ORDERED: SODIUM CHLORIDE 0.9% 250ML 250 ML ONE (01:54)
[2020-02-13] MEDS ORDERED: POTASSIUM CHLORIDE 40mEq 20ML VIAL ONE (01:54)
[2020-02-13] MEDS ORDERED: POTASSIUM CHLORIDE INJ 40 MEQ 40 MEQ in SODIUM CHLORIDE 0.9% 250ML 250 ML IVPB ONE (02:00)
[2020-02-13] MEDS ORDERED: ALUM & MAG HYDROX-SIMETHICONE 30 ML UD PO PRN (02:03)
[2020-02-13] MEDS ORDERED: MAGNESIUM HYDROXIDE 30 ML UD PO PRN (02:03)
[2020-02-13] MEDS ORDERED: ACETAMINOPHEN 325 MG TAB PO PRN (02:03)
[2020-02-13] MEDS ORDERED: ONDANSETRON INJ 4 MG/2 ML VIAL IV PRN (02:03)
[2020-02-13] MEDS ORDERED: SODIUM CHLORIDE 0.9% (FLUSH) 10 ML SYG IV PRN (02:03)
[2020-02-13] MEDS ORDERED: IV SET AND CAP CHANGE INJ INJ SCH (02:30)
[2020-02-13] MEDS ORDERED: OMEPRAZOLE CAP 20 MG CAP PO SCH (06:30)
[2020-02-13] MEDS ORDERED: ASPIRIN (CHEWABLE) 81 MG TAB PO SCH (09:30)
[2020-02-13] MEDS ORDERED: ATORVASTATIN 10 MG TAB PO SCH (09:30)
[2020-02-13] MEDS ORDERED: LISINOPRIL 10 MG TAB PO SCH (10:00)
[2020-02-13] MEDS ORDERED: DUTASTERIDE 0.5 MG CAP PO SCH (12:00)
[2020-02-13 12:31] VITALS: BP 145/70; TEMP 98.1; O2SAT 97
[2020-02-13] MEDS ORDERED: POTASSIUM CHLORIDE ELIXIR 20 MEQ/15 ML UD PO ONE (13:55)
[2020-02-13] MEDS ORDERED: ENOXAPARIN SODIUM 40 MG/0.4 ML SYG SUBCU SCH (21:00)
[2020-02-13] MEDS ORDERED: DOXAZOSIN MESYLATE 2 MG TAB PO SCH (21:00)
[2020-02-13] MEDS ORDERED: QUEtiapine FUMARATE 25 MG TAB PO SCH (21:00)
--- NOTE | 2020-02-14 08:12 | SSS ---
SUPERVISING PHYSICIAN: Jeff Scott MD CHIEF COMPLAINT: Same level fall. HISTORY OF PRESENT ILLNESS: Mr. Gabriel is a 74-year-old male patient who was brought to the Emergency Room by his family early this morning after he sustained a fall. The patient has dementia and the family is not present at time of exam. Therefore, history and physical is limited as the patient is a very poor historian. Most of the history was obtained from the ER record what little could be found in the patient's clinic chart. The ER physician endorses that the patient was brought to the Emergency Room apparently he had fallen at home. He lives with his son. On presentation to the ER, the patient actually had no complaints. His workup just showed a mild hypokalemia with 2.6 potassium and microcytic anemia with hemoglobin 7.8 and hematocrit 32.5. Differential showed no left shift. White count was within normal limits. Urine was within normal limits. Additional chemistries showed he had a normal magnesium. Liver functions showed slightly elevated BUN of 24, but creatinine was at 0.92 with an elevated CK of 685. Imaging studies included CT of his head and neck without any acute findings per radiologic interpretation. He also had a chest x-ray again with no acute findings per radiologic interpretation. Vital signs initially in the Emergency Room showed he was normotensive with a blood pressure of 135/69, heart rate 58, saturation 98% on room air and temperature 98.1. Given the fact that his family had dropped him off and he had been sustaining falls and he did have a low potassium, the patient is going to be placed in observation to assist with normalizing his potassium level and further plan of care on discharge given his advanced age and risk for multiple falls. He was placed in observation in stable condition. PAST MEDICAL HISTORY: 1. Erectile dysfunction. 2. Dementia. 3. Benign prostatic hypertrophy. 4. Hypertension. 5. CVA in the past with no reported residual side effects. PAST SURGICAL HISTORY: (As listed in his clinic chart) 1. Appendectomy. HOME MEDICATIONS: 1. Cardura 1 mg at bedtime. 2. Seroquel 25 mg at bedtime. 3. Lisinopril 10 mg b.i.d. 4. Multivitamin 1 daily. 5. Avodart 0.5 mg daily. 6. Aspirin 81 mg daily. 7. Lipitor 10 mg daily. ALLERGIES: No allergies are listed. FAMILY HISTORY: Unknown. SOCIAL HISTORY: The patient is a retired intermodal truck driver. He is and lives with his son in [place], [place]. He does have a past history of smoking, but I do not think he is currently smoking. He denies any alcohol or illicit drug use. REVIEW OF SYSTEMS: CONSTITUTIONAL: Negative for any fevers, chills or general malaise. HEENT: Negative for headache, sore throats, earaches, nasal congestion, vision changes. RESPIRATORY: Denies coughing, wheezing, shortness of breath. CARDIOVASCULAR: Negative for chest pain, palpitations or syncopal episodes. GASTROINTESTINAL: Negative for nausea, vomiting, diarrhea, constipation or abdominal pain. GENITOURINARY: Negative for dysuria, hematuria, polyuria. MUSCULOSKELETAL: Generalized weakness with some falls as noted in history of present illness, but otherwise denies any joint swelling or arthralgias. SKIN: Negative for lesions, rashes, moles or unexplained changes. NEUROLOGIC: Negative for seizures, ataxia, headaches, vision changes, just generalized weakness with falls as noted in history of present illness. HEMATOLOGIC: Denies easy bruising, unexplained bleeding or transfusion reactions. PHYSICAL EXAMINATION: VITAL SIGNS: Discharge vital signs showed temperature 98.1, pulse 58, blood pressure 145/70, respirations 16, saturation 97% on room air. GENERAL: The patient was resting comfortably. He was alert. HEENT: Tympanic membranes clear bilaterally. Oropharynx is pink, moist without any lesions. NECK: Supple, nontender with full range of motion. No jugular venous distention noted. RESPIRATORY: Lung sounds are clear to auscultation bilaterally without any rhonchi, wheezes or rales. CARDIOVASCULAR: Regular rate and rhythm without any appreciable murmurs, gallops, or rubs. ABDOMEN: Soft, nontender. Positive bowel sounds. EXTREMITIES: Trace edema bilaterally to the lower extremities. Otherwise, no cyanosis, clubbing or edema. NEUROLOGIC: He is alert to himself. He was pleasantly confused. He had some difficulty answering specific questions such as the date, the president, but showed no obvious neurologic deficits. Cranial nerves II-XII are grossly intact. Facial features are symmetrical. Extraocular movements are within normal limits. There is no nystagmus noted. SKIN: Warm, pink and dry. LABORATORY: White count was within normal limits at 6,000, hemoglobin 10.8, hematocrit 13.5, platelet count 219,000, differential without a left shift. Chemistries showed initially potassium of 2.6. After a K-rider, it improved to 2.8. Other electrolytes were within normal limits. Discharge BUN was 14, creatinine 0.88. Liver were all within normal limits. CK slightly elevated at 685. Urinalysis was within normal limits. RADIOLOGY: CT of cervical spine and head without contrast were without any acute findings. Chest x-ray was without any acute findings per radiologic interpretation. ADMISSION DIAGNOSIS: 1. Mild hypokalemia, etiology uncertain. 2. Recent same level fall without any loss of consciousness or acute trauma injuries, possibly contributed to by #1. 3. Dementia. 4. Erectile dysfunction. 5. Benign prostatic hypertrophy. 6. Hypertension. 7. CVA in the past with no reported residual side effects. DISCHARGE DIAGNOSIS: 1. Mild hypokalemia, etiology uncertain, improving with both parenteral and oral replacement. 2. Recent same level fall without any loss of consciousness or acute trauma injuries, possibly contributed to by #1. 3. Dementia. 4. Erectile dysfunction. 5. Benign prostatic hypertrophy. 6. Hypertension. 7. CVA in the past with no reported residual side effects. HOSPITAL COURSE: Mr. Gabriel was placed in observation overnight for close monitoring of his labs and clinical status. His EKG showed a normal sinus rhythm with no significant ectopy. No ST or T-wave changes. He did receive a K-rider in the ER and p.o. potassium on the Floor. Repeat potassium prior to discharge was 2.8. I did discuss the case with Dr. Scott, supervising physician, as well as family and the plan of care is to discharge home as the patient is stable. He will have home health to follow with labs and close followup with Dr. Mason, his primary care physician. It was felt the patient was clinically stable enough to continue with outpatient management. PLAN: Mr. Gabriel is discharged to home health care through [facility]. They will repeat labs, BMP to ensure his potassium is remaining stable and is improving. He will need followup with Dr. Mason, his primary care physician. He is to resume normal diet as tolerated. Activity is to increase as tolerated. He is to resume all medications as prior to hospital with no new medications prescribed on discharge. CONDITION ON DISCHARGE: Stable and improved. DISPOSITION: The patient was discharged to care of family members. #[id number] [facility]
== END 2020-02-13 15:55 | disposition home health service (06) ==
LOC: ER 00:06 → MS 02:06
PROVIDERS: ADMIT Nurse Practitioner Family; ATTEND Nurse Practitioner Family
DX: E87.6 Hypokalemia (principal); G30.9 Alzheimer's disease, unspecified; F02.80 Dementia in other diseases classified elsewhere, unspecified severity, without behavioral disturbance, psychotic disturbance, mood disturbance, and anxiety; N52.9 Male erectile dysfunction, unspecified; N40.0 Benign prostatic hyperplasia without lower urinary tract symptoms; I10 Essential (primary) hypertension; E78.5 Hyperlipidemia, unspecified; I45.10 Unspecified right bundle-branch block; M47.812 Spondylosis without myelopathy or radiculopathy, cervical region; Z91.81 History of falling; Z79.82 Long term (current) use of aspirin; Z79.899 Other long term (current) drug therapy; Z86.73 Personal history of transient ischemic attack (TIA), and cerebral infarction without residual deficits; Z87.891 Personal history of nicotine dependence; Z90.49 Acquired absence of other specified parts of digestive tract
CPT/HCPCS: J3480; J7050; 80048; 82553; 80053; 81001; 85025; 82550; 83735; 84484; 83880; 71045; 70450; 72125; 94760; 93005

== ENCOUNTER → 2020-02-15 | Outpatient (CLI) | payer MEDICARE, BC | LOC: NC 17:40 | PROVIDERS: ATTEND Family Medicine | DX: E87.6 Hypokalemia (principal) ==

== ENCOUNTER 2020-02-21 19:09 | Emergency (ER) | payer MEDICARE, BC ==
[2020-02-21 19:21] VITALS: TEMP 99
[2020-02-21] MEDS ORDERED: POTASSIUM CHLORIDE ELIXIR 20 MEQ/15 ML UD PO ONE (20:02)
--- NOTE | 2020-02-21 20:03 | CT ---
EXAM DESCRIPTION: Head CLINICAL HISTORY: 74 years Male right sided weakness COMPARISON: February 13, 2020. TECHNIQUE: Images were obtained in axial, sagittal, and coronal planes. This exam was performed according to our departmental dose-optimization program which includes use of Automated Exposure Control, adjustment of the mA and/or kV according to patient size and/or use of iterative reconstruction technique. FINDINGS: Ventricular system is enlarged. Moderate prominence of the cortical sulci. Moderate periventricular decreased attenuation consistent with more remote microvascular ischemic change. Additional decreased attenuation left anterior parietal lobe consistent with more remote infarct and encephalomalacia. No abnormal areas of increased attenuation seen. No extra-axial fluid collections noted. Unremarkable paranasal sinuses. No evidence for skull fracture. Symmetric aeration mastoid air cells bilaterally. IMPRESSION: No acute intracranial abnormality. No evidence for hemorrhage, mass lesion, or large acute infarction. 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 Age-appropriate changes. Findings unchanged when correlated with the prior study. Electronically signed by: Lo Augustine MD 02/21/2020 8:01 PM CDT
[2020-02-21] MEDS ORDERED: ASPIRIN TABLET 325 MG TAB PO ONE (20:04)
--- NOTE | 2020-02-21 20:16 | ED.PDOC ---
History of Present Illness - General Chief Complaint: General Stated Complaint: son states patient is having right sided weakness Time Seen by Provider: 02/21/20 19:11 Source: patient, family Exam Limitations: clinical condition - History of Present Illness Initial Comments: The patient is a 74-year-old male presented emergency room after being brought in by his son for concern for the possibility of a recurrent stroke. The patient's daughter had reported that he had been a little more confused. The patient's son reported that he was leaning over more towards the right when he got home. The patient is able to sit up straight without difficulty. He actually moves all extremities well. There is no facial droop. Speech is clear at this time. He is alert. He is not oriented given his dementia. This is not new. He is pleasant and cooperative. He does still have +1 to +2 edema to the lower extremities. I do not see any significant skin lesions. No evidence of point tenderness over the back. The patient has had several falls over the last 3 to 4 weeks. He was actually monitored here in the hospital 1 week ago after a fall. The patient does have advancing dementia and advancing gait disability related to that. The patient is a very unreliable source of information. Most information is obtained from the patient's son. Timing/Duration: 1/2 hour Severity: mild Improving Factors: nothing Worsening Factors: nothing Allergies/Adverse Reactions: Allergies NO KNOWN ALLERGY Allergy (Verified 02/13/20 00:35) Home Medications: Ambulatory Orders Aspirin [Baby Aspirin] 81 mg PO ONCE 08/15/14 Atorvastatin Calcium [Lipitor] 10 mg PO ONCE 08/15/14 Dutasteride [Avodart] 0.5 mg PO DAILY@1200 04/20/18 Multiple Vitamins W/ Minerals [One Daily Mens 50+ Multiv] 1 tab PO ONCE 04/20/18 Cardura 1 mg PO BEDTIME 02/13/20 Lisinopril 10 mg PO BID 02/13/20 Seroquel 25 mg PO BEDTIME 02/13/20 Review of Systems - Review of Systems Constitutional: States: no symptoms reported EENTM: States: no symptoms reported Respiratory: States: no symptoms reported Cardiology: States: no symptoms reported Gastrointestinal/Abdominal: States: no symptoms reported Genitourinary: States: no symptoms reported Musculoskeletal: States: no symptoms reported Skin: States: no symptoms reported Neurological: States: see HPI Endocrine: States: no symptoms reported All other Systems: No Change from Baseline Past Medical History (General) - Patient Medical History Hx Seizures: No Hx Stroke: Yes Hx Dementia: Yes Hx Asthma: No Hx of COPD: No Hx Cardiac Disorders: No Hx Congestive Heart Failure: No Hx Pacemaker: No Hx Hypertension: Yes Hx Thyroid Disease: No Hx Diabetes: No Hx Gastroesophageal Reflux: No Hx Renal Disease: No Hx Cancer: No Hx of HIV: No Hx Hepatitis C: No Hx MRSA: No Surgical History: noncontributory - Vaccination History Hx Tetanus, Diphtheria Vaccination: No Hx Influenza Vaccination: No Hx Pneumococcal Vaccination: No - Social History Hx Tobacco Use: No Hx Chewing Tobacco Use: No Hx Alcohol Use: Yes - 28 yrs agod Hx Substance Use: No Hx Substance Use Treatment: No Hx Depression: No Hx Physical Abuse: No Hx Emotional Abuse: No Hx Suspected Abuse: No - Female History Patient : No Family Medical History - Family History Mother Family History: No Known Living Status: Grandparents Living Status: Hx Family Diabetes: Yes Physical Exam - Physical Exam General Appearance: Alert, Comfortable, No apparent distress Eye Exam: bilateral normal Ears, Nose, Throat: hearing grossly normal, normal ENT inspection Neck: full range of motion, supple Respiratory: lungs clear, normal breath sounds, no respiratory distress, no accessory muscle use Cardiovascular/Chest: normal peripheral pulses, regular rate, rhythm, no edema Peripheral Pulses: radial,right: 2+, radial,left: 2+ Gastrointestinal/Abdominal: non tender, soft Rectal Exam: deferred Back Exam: no CVA tenderness, no vertebral tenderness Extremity: normal range of motion, non-tender, normal inspection, normal capillary refill, pedal edema 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 Skin Exam: normal color Comments: Vital Signs - 24 hr 02/21/20 19:10 Temperature 99.0 F Pulse Rate [ 64 monitor] Respiratory 18 Rate Blood Pressure 152/81 [Right Arm] O2 Sat by Pulse 97 Oximetry Progress - Progress Progress: 02/21/20 20:18 The patient is a 74-year-old male presented emergency room after being brought in by his son secondary to concern for possibly having another stroke. The patient's dementia does make it a little more difficult to assess but CT scan is reassuring. He is moving all extremities well. He does not appear to have any difficulty with speech or swallowing at this point in time over baseline. Laboratory work is reassuring as well. Hypokalemia does appear to be improved when compared to last week. He should continue his potassium supplement as well as a diuretic. I would also recommend some compression stockings from [employer] to be used during the day to help reduce edema. This may help reduce gait instability as well. Keep follow-up with primary care doctor in a couple of days. ER warnings are given for any significant worsening. Keep routine medications on board. [phone] - Results/Orders Results/Orders: CT scan of the head shows no acute pathology. Chronic findings are present. EKG shows mild sinus bradycardia at 57 bpm. Normal axis. Normal R wave progression. Very early right bundle branch block. Borderline LVH criteria. No ST segment or T wave changes indicative of acute ischemia. Normal QT interval. Laboratory Tests 02/21/20 02/21/20 02/21/20 19:25 19:25 19:25 WBC 5.4 RBC 3.50 L Hgb 11.2 L Hct 33.5 L MCV 95.5 H MCH 31.9 H MCHC 33.4 RDW 14.1 Plt Count 232 MPV 7.2 L Absolute Neuts (auto) 3.70 Absolute Lymphs (auto) 1.00 Absolute Monos (auto) 0.40 Absolute Eos (auto) 0.10 Absolute Basos (auto) 0.10 Neutrophils % 69.4 Lymphocytes % 18.9 L Monocytes % 8.0 Eosinophils % 1.7 Basophils % 2.0 PT 10.9 INR 1.10 PTT (SP) 24.0 Sodium 141 Potassium 3.3 L Chloride 107 Carbon Dioxide 28 Anion Gap 9.3 L BUN 18 Creatinine 1.04 BUN/Creatinine Ratio 17.3 Random Glucose 85 Serum Osmolality 282.4 Calcium 8.5 Magnesium 2.2 Total Bilirubin 0.6 AST 21 ALT 14 Alkaline Phosphatase 66 Creatine Kinase 125 CK-MB (CK-2) 3.6 CK-MB (CK-2) % Not Reportable Troponin I < 0.02 B-Natriuretic Peptide 198.0 H Serum Total Protein 6.4 Albumin 3.4 Globulin 3.0 Albumin/Globulin Ratio 1.1 Departure - Departure Clinical Impression: Concern about stroke without diagnosis, Gait instability, Peripheral edema, Hypokalemia Dementia Qualifiers: Dementia type: unspecified type Dementia behavioral disturbance: without behavioral disturbance Qualified Code(s): F03.90 - Unspecified dementia without behavioral disturbance Disposition: Discharge to Home or Self Care Condition: Fair Departure Forms: ED Discharge - Pt. Copy, Patient Portal Self Enrollment Instructions: Dependent Edema (DC), Hypokalemia Diet: regular diet Activity: increase activity as tolerated Referrals: Haile Mason MD [Primary Care Provider] - 1-2 Weeks Home Medications: Ambulatory Orders Aspirin [Baby Aspirin] 81 mg PO ONCE 08/15/14 Atorvastatin Calcium [Lipitor] 10 mg PO ONCE 08/15/14 Dutasteride [Avodart] 0.5 mg PO DAILY@1200 04/20/18 Multiple Vitamins W/ Minerals [One Daily Mens 50+ Multiv] 1 tab PO ONCE 04/20/18 Cardura 1 mg PO BEDTIME 02/13/20 Lisinopril 10 mg PO BID 02/13/20 Seroquel 25 mg PO BEDTIME 02/13/20 Additional Instructions: The patient is a 74-year-old male presented emergency room after being brought in by his son secondary to concern for possibly having another stroke. The patient's dementia does make it a little more difficult to assess but CT scan is reassuring. He is moving all extremities well. He does not appear to have any difficulty with speech or swallowing at this point in time over baseline. Laboratory work is reassuring as well. Hypokalemia does appear to be improved when compared to last week. He should continue his potassium supplement as well as a diuretic. I would also recommend some compression stockings from [facility] to be used during the day to help reduce edema. This may help reduce gait instability as well. Keep follow-up with primary care doctor in a couple of days. ER warnings are given for any significant worsening. Keep routine medications on board.
[2020-02-21 20:24] VITALS: BP 155/88; O2SAT 96
== END 2020-02-21 20:26 | disposition home or self-care (01) ==
LOC: ER 19:09
DX: R26.9 Unspecified abnormalities of gait and mobility (principal); E87.6 Hypokalemia; F03.90 Unspecified dementia, unspecified severity, without behavioral disturbance, psychotic disturbance, mood disturbance, and anxiety; R60.9 Edema, unspecified; R00.1 Bradycardia, unspecified; I10 Essential (primary) hypertension; Z86.73 Personal history of transient ischemic attack (TIA), and cerebral infarction without residual deficits; Z79.899 Other long term (current) drug therapy

== ENCOUNTER 2020-02-24 13:53 | Emergency (ER) | payer MEDICARE, BC ==
[2020-02-24] MEDS ORDERED: SODIUM CHLORIDE 0.9% (FLUSH) 10 ML SYG IV PRN (14:08)
[2020-02-24] MEDS ORDERED: SODIUM CHLORIDE 0.9% 1000ML 500 ML IVS PRN (14:08)
--- NOTE | 2020-02-24 14:15 | ED.PDOC ---
History of Present Illness - General Chief Complaint: Neuro Symptoms/Deficits Stated Complaint: found stumbling in public Time Seen by Provider: 02/24/20 14:08 Source: patient, RN notes reviewed, Vital Signs reviewed, EMS notes reviewed, EMS Exam Limitations: other - Advanced dementia - History of Present Illness Initial Comments: This is a 74-year-old male with longstanding history of dementia, that according to old records has gotten progressively worse since a stroke 1 year ago. He has had multiple ER visits in the past month for falls. He was seen in the emergency room 3 days ago for possible strokelike symptoms. He was also recently admitted 2 weeks ago for hypokalemia. He was found walking along the street and was reportedly "stumbling". The patient states he may have fallen, but denies any injuries. Bystanders thought that he was very confused, called EMS, and they transported him to the emergency department. EMS states his initial temp was 100.4, but states that he was walking in the sun and in the heat and was apparently fairly sweaty when they found him. Temp is 99.0 here. He denies any complaints at this time.He appears to have fairly advanced dementia, and is not a reliable historian. No family is with him at this time. Allergies/Adverse Reactions: Allergies NO KNOWN ALLERGY Allergy (Verified 02/13/20 00:35) Home Medications: Ambulatory Orders Aspirin [Baby Aspirin] 81 mg PO ONCE 08/15/14 Atorvastatin Calcium [Lipitor] 10 mg PO ONCE 08/15/14 Dutasteride [Avodart] 0.5 mg PO DAILY@1200 04/20/18 Multiple Vitamins W/ Minerals [One Daily Mens 50+ Multiv] 1 tab PO ONCE 04/20/18 Cardura 1 mg PO BEDTIME 02/13/20 Lisinopril 10 mg PO BID 02/13/20 Seroquel 25 mg PO BEDTIME 02/13/20 Review of Systems - Review of Systems Unable to Obtain Due To: dementia Past Medical History (General) - Patient Medical History Hx Seizures: No Hx Stroke: Yes Hx Dementia: Yes Hx Asthma: No Hx of COPD: No Hx Cardiac Disorders: No Hx Congestive Heart Failure: No Hx Pacemaker: No Hx Hypertension: Yes Hx Thyroid Disease: No Hx Diabetes: No Hx Gastroesophageal Reflux: No Hx Renal Disease: No Hx Cancer: No Hx of HIV: No Hx Hepatitis C: No Hx MRSA: No - Vaccination History Hx Tetanus, Diphtheria Vaccination: No Hx Influenza Vaccination: No Hx Pneumococcal Vaccination: No - Social History Hx Tobacco Use: No Hx Chewing Tobacco Use: No Hx Alcohol Use: Yes - 28 yrs ago Hx Substance Use: No Hx Substance Use Treatment: No Hx Depression: No Hx Physical Abuse: No Hx Emotional Abuse: No Hx Suspected Abuse: No - Female History Patient : No Family Medical History - Family History Mother Family History: No Known Living Status: Grandparents Living Status: Hx Family Diabetes: Yes Physical Exam - Physical Exam General Appearance: Alert, Comfortable, No apparent distress Eye Exam: bilateral normal Ears, Nose, Throat: hearing grossly normal, normal ENT inspection Neck: non-tender, full range of motion, supple Respiratory: chest non-tender, lungs clear, normal breath sounds, no respiratory distress, no accessory muscle use Cardiovascular/Chest: normal peripheral pulses, regular rate, rhythm, no JVD, systolic murmur - 2 out of 6, extra beats Peripheral Pulses: radial,right: 2+, radial,left: 2+, dorsalis pedis,right: 2+, dorsalis pedis,left: 2+, posterior tibialis,right: 2+, posterior tibialis,left: 2+ Gastrointestinal/Abdominal: normal bowel sounds, non tender, soft Back Exam: normal inspection, no CVA tenderness, no vertebral tenderness Extremity: normal range of motion, non-tender, normal inspection - 1-2+ pitting edema to both lower extremities, no calf tenderness 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 States he thinks "[facility]". Fingernose, heelshin normal. Strength is 5 out of 5 in all 4 extremities. No pronator drift. Speech is clear. Skin Exam: normal color, warm/dry Comments: Very friendly, no distress, appears to have fairly advanced dementia Progress - Progress Progress: 02/24/20 14:45 Received call from radiologist. Patient has a small area of intraparenchymal bleeding left frontal lobe that is new from recent CT. No infarct, no midline shift.Will begin arrangements for transfer for neurosurgical evaluation. 02/24/20 15:05 Discussed with son, Loni, by phone. He was not aware that his father was in the hospital. He was the family contact we had on record. He is not sure why he was walking along the street. I explained CT results and need for transfer. He agreed with plan for transfer. 02/24/20 15:11 [place] police now in the emergency department. The patient was reportedly with his son Loni. The patient was reportedly dropped off at [facility], and son left. Please were called because son was driving erratically after he left the [facility],Police felt he was possibly intoxicated.. 02/24/20 15:[address] Morales, neurosurgeon at [facility]. Reviewed labs, CT findings. Recommended transfer to ER. Does not want CTA performed prior to transfer, they will obtain that in [facility] ed. 02/24/20 15:[address] Cheema, ER physician at [facility] in [place]. BP at this time 160/80, recommends Cardizem drip to maintain SBP 140 or lower. Will accept his transfer. 02/24/20 15:36 MDM: Differential diagnosis includes ICH, stroke, hyponatremia, dehydration, intoxication, UTI, advanced dementia, medication side effect. Patient presenting with reported "stumbling" and altered mental status. Patient was in the emergency department 3 days ago with right-sided weakness, CT head at that time was negative. CT head today shows a new left frontal bleed compared to CT from 3 days ago measuring 2.2 x 1.6 cm without midline shift. Appears to be hypertensive bleed. Initially BP was normal in the emergency department, but BP gradually increased, so patient was placed on Cardizem drip. He has not on any blood thinners other than baby aspirin according to his old records. He or his son are not sure what medications he is taking. His neuro exam, aside from being disoriented to place and time, is completely nonfocal. I do not know if this disorientation is new or in keeping with his prior dementia. He will need to be transferred for neurosurgery/neurology consultation and BP management. JONNY CHAMBERS DO [facility][id number] - Results/Orders Results/Orders: Chest x-ray reviewed personally by me at 2:36 PM. No acute process, no pneumothorax, no infiltrates Laboratory Results - last 24 hr 02/24/20 02/24/20 02/24/20 14:16 14:16 14:16 WBC 6.3 RBC 3.57 L Hgb 11.4 L Hct 33.8 L MCV 94.7 H MCH 32.0 H MCHC 33.8 RDW 13.7 Plt Count 252 MPV 7.2 L Absolute Neuts (auto) 4.80 Absolute Lymphs (auto) 0.80 L Absolute Monos (auto) 0.50 Absolute Eos (auto) 0.00 Absolute Basos (auto) 0.10 Neutrophils % 77.3 Lymphocytes % 12.0 L Monocytes % 8.1 Eosinophils % 0.7 L Basophils % 1.9 PT INR PTT (SP) Sodium 140 Potassium 3.2 L Chloride 107 Carbon Dioxide 26 Anion Gap 10.2 L BUN 11 Creatinine 0.93 BUN/Creatinine Ratio 11.8 Random Glucose 96 Serum Osmolality 278.7 Calcium 8.4 Total Bilirubin 1.1 H D AST 20 ALT 14 Alkaline Phosphatase 67 Troponin I < 0.02 B-Natriuretic Peptide 152.0 H Serum Total Protein 6.4 Albumin 3.6 Globulin 2.8 Albumin/Globulin Ratio 1.3 Ethyl Alcohol 02/24/20 02/24/20 14:16 14:16 WBC RBC Hgb Hct MCV MCH MCHC RDW Plt Count MPV Absolute Neuts (auto) Absolute Lymphs (auto) Absolute Monos (auto) Absolute Eos (auto) Absolute Basos (auto) Neutrophils % Lymphocytes % Monocytes % Eosinophils % Basophils % PT 10.1 INR 1.02 PTT (SP) 25.0 Sodium Potassium Chloride Carbon Dioxide Anion Gap BUN Creatinine BUN/Creatinine Ratio Random Glucose Serum Osmolality Calcium Total Bilirubin AST ALT Alkaline Phosphatase Troponin I B-Natriuretic Peptide Serum Total Protein Albumin Globulin Albumin/Globulin Ratio Ethyl Alcohol < 5.40 Departure - Departure Clinical Impression: Advanced dementia, Hypokalemia Intracerebral hemorrhage Qualifiers: Intracerebral hemorrhage etiology: nontraumatic Cerebral hemorrhage location: cerebral hemisphere, cortical portion Laterality: left Qualified Code(s): I61.1 - Nontraumatic intracerebral hemorrhage in hemisphere, cortical Altered mental status Qualifiers: Altered mental status type: disorientation Qualified Code(s): R41.0 - Disorientation, unspecified Disposition: Transfer to Hospital Condition: Fair Departure Forms: ED Discharge - Pt. Copy, Patient Portal Self Enrollment Referrals: Haile Mason MD [Primary Care Provider] - 1-2 Weeks Home Medications: Ambulatory Orders Aspirin [Baby Aspirin] 81 mg PO ONCE 08/15/14 Atorvastatin Calcium [Lipitor] 10 mg PO ONCE 08/15/14 Dutasteride [Avodart] 0.5 mg PO DAILY@1200 04/20/18 Multiple Vitamins W/ Minerals [One Daily Mens 50+ Multiv] 1 tab PO ONCE 04/20/18 Cardura 1 mg PO BEDTIME 02/13/20 Lisinopril 10 mg PO BID 02/13/20 Seroquel 25 mg PO BEDTIME 02/13/20 Critical Care Note - Critical Care Note Total Time (mins): 36 Comments: Time spent examining patient, reviewing old records, reviewing labs/imaging, discussions with family, discussions with consultants, reviewing EKGs. 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
[2020-02-24] MEDS ORDERED: KCL 40MEQ/NS 1,000 ML IVS PRN (14:56)
--- NOTE | 2020-02-24 15:10 | RAD ---
EXAM DESCRIPTION: Chest,1 View CLINICAL HISTORY: altered mental status COMPARISON: February 13, 2020 FINDINGS: The cardiomediastinal silhouette is unremarkable. Mural calcification in the aortic arch. Subsegmental atelectasis or scarring right lung base without airspace consolidation or pleural effusion. The bronchovascular markings are within normal limits, and the lungs are not hyperinflated. There is no pneumothorax or acute fracture. IMPRESSION: Vascular calcifications, no acute intrathoracic abnormality. Electronically signed by: Erik Aleman MD 02/24/2020 3:08 PM CDT
[2020-02-24] MEDS ORDERED: niCARdipine HCL 2.5 MG/ML AMP IVPB ONE (15:30)
[2020-02-24] MEDS ORDERED: niCARdipine HCL 25 MG in SODIUM CHLORIDE 0.9% 250ML 240 ML IVPB SCH (15:30)
[2020-02-24] MEDS ORDERED: SODIUM CHLORIDE 0.9% 250ML 250 ML ONE (15:30)
[2020-02-24 15:52] VITALS: TEMP 97.9; O2SAT 97
[2020-02-24 16:59] VITALS: BP 160/83
--- NOTE | 2020-02-25 08:23 | CT ---
EXAM DESCRIPTION: Head CLINICAL HISTORY: altered mental status, possible fall COMPARISON: CT head dated 02/21/2020 TECHNIQUE: Contiguous axial images through the head were obtained without intravenous contrast administration. Sagittal and coronal reconstructions were reviewed. FINDINGS: 2 x 2.1 cm intraparenchymal hemorrhage is noted in the left frontal lobe with mild surrounding edema. No intra-axial or extra-axial fluid collections are identified. The ventricles and cisterns appear normal in caliber. The sella and suprasellar regions appear normal. The structures of the posterior fossa are intact. The globes are intact bilaterally. The visualized paranasal sinuses and mastoid air cells are well-aerated. Review of the bones demonstrates no gross instability. IMPRESSION: 2 x 2.1 cm intraparenchymal hemorrhage is noted in the left frontal lobe with mild surrounding edema. No evidence of midline shift or mass effect. Findings were discussed with Dr. Barrera on 02/24/2020 at 2:39 PM. This exam was performed according to our departmental dose-optimization program, which includes automated exposure control, adjustment of the mA and/or kV according to patient size and/or use of iterative reconstruction technique. Electronically signed by: Joyce Reynolds MD 02/25/2020 8:22 AM CDT
== END 2020-02-24 16:20 | disposition short-term general hospital (02) ==
LOC: ER 13:53
DX: I61.1 Nontraumatic intracerebral hemorrhage in hemisphere, cortical (principal); E87.6 Hypokalemia; R41.0 Disorientation, unspecified; F03.90 Unspecified dementia, unspecified severity, without behavioral disturbance, psychotic disturbance, mood disturbance, and anxiety; I10 Essential (primary) hypertension; Z86.73 Personal history of transient ischemic attack (TIA), and cerebral infarction without residual deficits; Z79.899 Other long term (current) drug therapy
CPT/HCPCS: 36415; 70450; 71045; 80053; 80320; 83880; 84484; 85025; 85610; 85730; 93005; J3480; J7030; J7050